=== PATIENT | female | born 1995 | race Hispanic/Latino ===

== ENCOUNTER 2021-07-23 00:48 | Emergency (ER) | payer MEDICAID ==
[~2021-07-23] VITALS: Ht 162.6 cm; Wt 89.4 kg
[2021-07-23 01:52] VITALS: BP 140/87
== END 2021-07-23 01:52 | disposition home or self-care (01) ==
LOC: FSED 00:59
DX: T28.0XXA Burn of mouth and pharynx, initial encounter (principal); Z20.2 Contact with and (suspected) exposure to infections with a predominantly sexual mode of transmission; Z03.89 Encounter for observation for other suspected diseases and conditions ruled out
CPT/HCPCS: 99282